=== PATIENT | male | born 1945 | race Caucasian/White ===

== ENCOUNTER 2020-08-23 12:40 | Emergency (ER) | payer BC, SELFPAY ==
[~2020-08-23] VITALS: Ht 172.7 cm; Wt 64.0 kg
[2020-08-23 12:42] VITALS: Ht 172.7 cm; Wt 64.0 kg
[2020-08-23 14:18] LABS: BASOPHIL % 0.2 % (0.2-1.5); PLATELET COUNT 344 x10^3mcL (152-348)
[2020-08-23 14:23] LABS: RED CELL DISTRIBUTION WIDTH 15.1 % (12.1-16.2)
[2020-08-23 14:37] LABS: CALCIUM 9.3 mg/dL (8.5-10.1); CARBON DIOXIDE 28.5 mmol/L (21-32); CHLORIDE SERUM 101 mmol/L (98-107); CREATININE SERUM 0.9 mg/dL (0.7-1.3); GLUCOSE SERUM 103 mg/dL (74-106); POTASSIUM SERUM 4.3 mmol/L (3.5-5.1); SODIUM SERUM 138 mmol/L (136-145)
[2020-08-23 14:41] LABS: ALBUMIN 2.8 g/dL (3.4-5.0); ALKALINE PHOSPHATASE 112 U/L (46-116); ALT/SGPT 35 U/L (16-63); AST/SGOT 22 U/L (15-37); BILIRUBIN TOTAL 0.3 mg/dL (0.20-1.00); TOTAL PROTEIN, SERUM 7.2 g/dL (6.4-8.2)
[2020-08-23 16:03] VITALS: BP 119/75
== END 2020-08-23 16:03 | disposition home or self-care (01) ==
LOC: ED 12:40
PROVIDERS: Emergency Medicine
DX: U07.1 COVID-19 (principal); J12.82 Pneumonia due to coronavirus disease 2019
CPT/HCPCS: J0456